=== PATIENT | male | born 1995 | race Caucasian/White ===

== ENCOUNTER 2023-10-24 16:42 | Emergency (ER) | payer OTHER, SELFPAY ==
[2023-10-24 16:44] VITALS: BP 170/92; PULSE 103; RESP 16; TEMP 36.4; O2SAT 100; BMI 29.2
--- NOTE | 2023-10-24 17:06 | ED_ITS ---
HPI - Chest Pain General Time Seen by Provider: 17:06 Date Seen: 10/24/23 Chief Complaint: Chest Pain Stated Complaint: Chest pain Time Seen by Provider: 10/24/23 16:55 Source: patient, RN notes reviewed and old records reviewed Mode of arrival: ambulatory Limitations: no limitations History of Present Illness HPI narrative: 28-year-old male who comes in today with two episodes of palpitations and near syncope. Patient noted episode of fast heart rate, chest pressure, shortness of breath, lightheadedness the last about 45 seconds. About 30 seconds later had a 2nd episode that lasted about 20 seconds. Did have some tingling in the left arm with this. Feels well now. Denies headache, lower extremity swelling with this. No family history of sudden cardiac . Patient does vape nicotine, occasionally drinks alcohol. Has had episodes of palpitations in the past but not this severe. Related Data Home Medications Medication Instructions Recorded Confirmed No Known Home Medications 10/24/23 10/24/23 Allergies Allergy/AdvReac Type Severity Reaction Status Date / Time No Known Drug Allergies Allergy Verified 10/24/23 16:48 PFSH PFS Social History Do you use any of these nicotine containing products: Vaping Products Second hand tobacco smoke exposure: No How often do you have a drink containing alcohol: monthly or less How many standard drinks containing alcohol do you have on a typical day: 1 or 2 AUDIT-C Alcohol total score: 1 Non-prescribed substance use: denies use service: No Exam Narrative Exam Narrative: General: Well-developed and well-nourished, no acute distress Head: Atraumatic and normocephalic Eyes: Pupils are equal reactive, extraocular motions intact, conjunctiva clear ENT: External nose and ears are normal, posterior pharynx without erythema or exudate Neck: No midline cervical tenderness, full spontaneous range of motion the neck, trachea midline, no adenopathy Heart: Regular rate and rhythm no murmurs or thrills Lungs: Clear to auscultation bilaterally without wheezes or crackles Abdomen: Soft, nontender, nondistended with active bowel sounds Musculoskeletal: No tenderness, deformity, or edema Neurologic: Awake, alert, and oriented x3, no gross focal neurologic deficits, cranial nerves intact as tested Psych: Mood and affect are appropriate Skin: No rashes Const Vital Signs, click to edit/add: Vital Signs - 24 hr 10/24/23 16:44 Temperature 97.6 F Pulse Rate [Pulse Oximeter] 103 H Respiratory Rate 16 Blood Pressure [Right Upper Arm] 170/92 H Pulse Oximetry 100 Oxygen Delivery Method Room Air Course Course ED Course: Patient seen examined, no prior records available for reviewed. Patient presents today with palpitations, chest tightness, and lightheadedness while driving. Denies recent illness. Reports history of occasional fast heart rate but not with the associated symptoms. Labs are ordered, EKG is reassuring Reevaluation(s) Time of Reevaluation #1: 18:09 Reevaluation #1: Chest x-ray ordered and independently interpreted by me negative for acute findings. CBC is normal. Troponin is negative. Time of Reevaluation #2: 18:40 Reevaluation #2: Labs independently interpreted by me with negative D-dimer, negative BNP. Troponin is pending. If this is negative, patient can be discharged with continued outpatient follow-up with primary care, consider Holter monitor. Time of Reevaluation #3: 19:01 Reevaluation #3: Troponin is 0, patient is stable for discharge Vital Signs Vital signs: Initial Vital Signs Temperature 97.6 F 10/24/23 16:44 Temperature Source Temporal Artery Scan 10/24/23 16:44 Pulse Rate 103 H 10/24/23 16:44 Respiratory Rate 16 10/24/23 16:44 Blood Pressure 170/92 H 10/24/23 16:44 Blood Pressure Mean 118 H 10/24/23 16:44 Blood Pressure Position Sitting 10/24/23 16:44 Pulse Oximetry 100 10/24/23 16:44 Oxygen Delivery Method Room Air 10/24/23 16:44 Vital Signs Temperature 97.6 F 10/24/23 16:44 Pulse Rate 103 H 10/24/23 16:44 Respiratory Rate 16 10/24/23 16:44 Blood Pressure 170/92 H 10/24/23 16:44 Pulse Oximetry 100 10/24/23 16:44 Oxygen Delivery Method Room Air 10/24/23 16:44 Temperature 97.6 F 10/24/23 16:44 Pulse Rate 103 H 10/24/23 16:44 Respiratory Rate 16 10/24/23 16:44 Blood Pressure 170/92 H 10/24/23 16:44 Pulse Oximetry 100 10/24/23 16:44 Oxygen Delivery Method Room Air 10/24/23 16:44 MDM - Chest Pain Lab Data Labs: Lab Results 10/24/23 10/24/23 Range/Units 17:35 18:19 WBC 8.24 (4.50-11.00) K/uL RBC 5.32 (4.30-5.90) m/uL Hgb 15.2 (13.5-17.5) gm/dL Hct 45.6 (37.0-53.0) % MCV 86 (80-100) fL MCH 29 (26-34) pg MCHC 33 (32-36) gm/dL RDW Coeff of Pric[place] 13.1 (11.5-15.5) % Plt Count 396 (140-440) K/uL Neut % (Auto) 67.4 (42.0-72.0) % Lymph % (Auto) 24.6 (20-44) % [place] % (Auto) 6.4 (0.0-11.0) % Eos % (Auto) 1.1 (0.0-7.0) % Baso % (Auto) 0.4 (0.0-3.0) % Neut # (Auto) 5.55 (1.7-7.0) K/uL Lymph # (Auto) 2.03 (0.90-2.90) K/uL [place] # (Auto) 0.50 (0.00-0.90) K/UL Eos # (Auto) 0.09 (0.00-0.50) K/uL Baso # (Auto) 0.03 (0.00-0.30) K/uL Abs Immat Gran (auto) 0.01 (0.00-0.30) K/uL Imm/Tot Granulo (auto) 0.1 % INR 0.88 L (0.91-1.10) D-Dimer Quant (PE/DVT) 0.08 (0.00-0.50) ug/ml Sodium 138 (135-149) mmol/L Potassium 3.9 (3.6-5.1) mmol/L Chloride 104 (96-114) mmol/L Carbon Dioxide 26 (20-32) mmol/L Anion Gap 8 (7-15) mEq/L BUN 14 (5-24) mg/dL Creatinine 0.9 (0.5-1.5) mg/dL Estimated Creat Clear 151.36 Estimated GFR 120 ml/min Glucose 95 (60-115) mg/dL Calcium 9.5 (8.4-10.6) mg/dL Magnesium 2.2 (1.5-2.6) mg/dL NT-Pro-B Natriuret Pep 21 pg/mL POC Troponin I 0.00 L (0.01-0.04) ng/ml ECG Data Attestation: I personally reviewed and interpreted this ECG as follows: ECG interpretation date: 10/24/23 ECG interpretation time: 16:58 Prior ECG tracings: not available for review Interpretation: Independently interpreted by me with normal sinus rhythm rate 86, no acute ST elevations or depressions, normal intervals, normal axis, QTC 433, NV 122. No prior for comparison Discharge Plan Discharge Clinical Impression: Palpitations, Atypical chest pain, Near syncope Patient Disposition: Home, Self-Care Condition: Stable Instructions: Heart Palpitations (ED), Near Syncope (ED) Additional Instructions: Plenty of fluids and rest. Avoid caffeine. Follow-up in primary care clinic as soon as possible for further evaluation and treatment Activity Level: Activity as Tolerated Discharge Diet: Regular Prescriptions: No Action No Known Home Medications Follow Up/Referrals: Provider,Not a Local [Primary Care Provider] - Stand Alone Forms: [employer] Info Instructions
--- NOTE | 2023-10-24 17:17 | XR_ITS ---
Patient: LOGZIYAD ROUSE Facility:?[facility] Patient ID:?[id number] Site Patient ID:?[id number]. Site :?[id number] Study:?XRay-Chest 2V-10/24/2023 6:04:52 PM Ordering Physician:VANDANA Final Report: Indication Chest pain Technique Two view(s) of the chest Comparison None Findings The cardiomediastinal silhouette and pulmonary vasculature are unremarkable. There is no focal airspace consolidation, pleural effusion, or pneumothorax. No displaced fractures. Impression No acute cardiopulmonary process. Dictated by Jhon Greene MD @ 10/24/2023 6:48:48 PM Signed by:?Jhon Greene MD @10/24/2023 6:48:48 PM (Electronic Signature)
[2023-10-24 17:47] LABS: Basophils Absolute Auto 0.03 K/uL (0.00-0.30); Basophils Percent Auto 0.4 % (0.0-3.0); Eosinophils Absolute Auto 0.09 K/uL (0.00-0.50); Eosinophils Percent Auto 1.1 % (0.0-7.0); Hematocrit 45.6 % (37.0-53.0); Hemoglobin* 15.2 gm/dL (13.5-17.5); Immature Granulocytes Abs Auto 0.01 K/uL (0.00-0.30); Immature Granulocytes Pct Auto 0.1 %; Lymphocytes Absolute Auto 2.03 K/uL (0.90-2.90); Lymphocytes Percent Auto 24.6 % (20-44); Mean Corpuscular HGB Conc 33 gm/dL (32-36); Mean Corpuscular Hemoglobin 29 pg (26-34); Mean Corpuscular Volume 86 fL (80-100); Monocytes Percent Auto 6.4 % (0.0-11.0); Neutrophils Absolute Auto 5.55 K/uL (1.7-7.0); Neutrophils Percent Auto 67.4 % (42.0-72.0); Platelet Count* 396 K/uL (140-440); RDW Coefficient of Variation % 13.1 % (11.5-15.5); Red Blood Count 5.32 m/uL (4.30-5.90); Slide Review Reflex No; White Blood Count* 8.24 K/uL (4.50-11.00)
[2023-10-24 18:03] LABS: INR 0.88 (0.91-1.10); Prothrombin Time 12.5 Seconds
[2023-10-24 18:05] LABS: Chloride* 104 mmol/L (96-114)
[2023-10-24 18:06] LABS: Potassium* 3.9 mmol/L (3.6-5.1); Sodium* 138 mmol/L (135-149)
[2023-10-24 18:08] LABS: Creatinine* 0.9 mg/dL (0.5-1.5); Est. Creatinine Clearance* 151.36; Estimated Glomerular Filt Rate 120 ml/min
[2023-10-24 18:09] LABS: Anion Gap 8 mEq/L (7-15); Blood Urea Nitrogen* 14 mg/dL (5-24); Calcium* 9.5 mg/dL (8.4-10.6); Carbon Dioxide* 26 mmol/L (20-32); Glucose* 95 mg/dL (60-115); Magnesium* 2.2 mg/dL (1.5-2.6)
[2023-10-24 18:35] LABS: NT Pro B Type NatriureticPept* 21 pg/mL
[2023-10-24 18:37] LABS: D Dimer Quantitative* 0.08 ug/ml (0.00-0.50)
[2023-10-24 19:03] VITALS: BP 127/74; PULSE 78; RESP 18; TEMP 37.1; O2SAT 98
== END 2023-10-24 19:17 | disposition home or self-care (01) ==
PROVIDERS: Emergency Provider Family Medicine
DX: R07.9 Chest pain, unspecified (principal)
CPT/HCPCS: 36415; 71046; 80048; 83735; 83880; 84484; 85025; 85379; 85610; 93005; 99284; 99285